=== PATIENT | female | born 1945 | race Caucasian/White ===

== ENCOUNTER → 2017-12-11 | Outpatient (CLI) | payer MEDICARE, OTHER ==
[~2017-12-11] MED LIST: ALBU8.5H2 IH; AMLO10TA82 PO; ASP81TEC PO; ATRV10T PO; CHLO25TA22 PO; CLN.1T PO; CLON0.2T PO; CLON1000 PO; CLPD75T PO; ENAL2.5T PO; LEVO75TA57 PO; LISI40TA PO; LOSA100T28 PO; MTP100TCR PO; VALS1TAB15 PO
--- NOTE | 2017-12-11 10:33 | Diagnostic Imaging Report ---
Indication: Renal artery stenosis with renal artery stent. The patient has hypertension. Technique: Moffett scale, color flow and duplex Doppler evaluation of the kidneys. Findings: Right kidney measures 9.2 x 5.8 x 4.8 cm and the left kidney measures 10.4 x 6.1 x 5.3 cm. Cortical thickness and echogenicity appears to be normal. No calculi or hydronephrosis is seen. Bladder is unremarkable. Renal Doppler was attempted. This is limited by bowel gas. The proximal and mid right renal artery was obscured. The proximal left renal artery was obscured. Velocities within the distal right renal artery as well as the mid and distal left renal artery are normal. Renal artery to aorta ratios are normal. Waveforms are unremarkable. Impression: Compromised study due to overlying bowel gas. No gross abnormality is seen. Dictated by: Dictated on workstation # [id number]
== END ==
LOC: RAD 08:28
PROVIDERS: ATTEND Physician Assistant
DX: I70.1 Atherosclerosis of renal artery (principal); I10 Essential (primary) hypertension; I65.23 Occlusion and stenosis of bilateral carotid arteries; E78.2 Mixed hyperlipidemia; Z95.820 Peripheral vascular angioplasty status with implants and grafts
CPT/HCPCS: 93975